=== PATIENT | male | born 1995 | race Caucasian/White ===

== ENCOUNTER 2016-10-15 17:03 | Emergency (ER) | payer OTHER ==
[2016-10-15 17:06] VITALS: BP 127/67
--- NOTE | 2016-10-15 17:59 | UC ---
Throat Pain/Nasal [place] HPI - History of Current Complaint Chief Complaint: UCRespiratory Stated Complaint: SORE THROAT Time Seen by Provider: 10/15/16 17:34 Hx Obtained From: Patient Onset/Duration: Gradual Onset - started [address], worsening, no fever or cough Severity: Worse Since: - today Associated Signs & Symptoms: Positive: Negative - Allergies/Home Medications Allergies/Adverse Reactions: Allergies Allergy/AdvReac Type Severity Reaction Status Date / Time No Known Allergies Allergy Verified 10/15/16 17:05 PMH/Surg Hx/FS Hx/Imm Hx Previously Healthy: Yes - Surgical History Surgical History: None - Family History Known Family History: Positive: None - Social History Occupation: Student Lives: With Family Alcohol Use: Occasionally Substance Use Type: None Smoking Status (MU): Never Smoked Tobacco Review of Systems Constitutional: Negative Skin: Negative ENT: Sore Throat Respiratory: Negative Cardiovascular: Negative Gastrointestinal: Negative Neurological: Negative Psychological: Negative All Other Systems Reviewed And Are Negative: Yes Physical Exam Triage Information Reviewed: Yes Appearance: Well-Appearing, No Pain Distress, Well-Nourished Vital Signs: Initial Vital Signs Temp 98.3 F 10/15/16 17:04 Pulse 76 10/15/16 17:04 Resp 12 10/15/16 17:04 BP 127/67 10/15/16 17:04 Pulse Ox 99 10/15/16 17:04 Vital Signs Reviewed: Yes Eyes: Positive: Conjunctiva Clear ENT: Positive: Pharyngeal erythema, TMs normal, Tonsillar swelling. Negative: Nasal congestion, Nasal drainage, Tonsillar exudate Neck: Positive: Enlarged Nodes @ - bilateral ant cervical LAD Respiratory Exam: Normal Cardiovascular Exam: Normal Neurological Exam: Normal Psychological Exam: Normal Skin Exam: Normal Skin: Negative: rashes Throat Pain/Nasal Course/Dx - Differential Dx/Diagnosis Differential Diagnosis/HQI/PQRI: Mononucleosis, Sinusitis, Tonsillitis, URI Provider Diagnoses: strep throat Discharge - Discharge Plan Condition: Good Disposition: HOME Prescriptions: Azithromycin TAB* [Zithromax TAB (Z-CONNIE) 250 mg #6 tabs] 250 mg PO DAILY #4 tab Patient Education Materials: Strep Throat (ED) Additional Instructions: drink plenty of fluids ibuprofen 600mg every 6 hours as needed for pain take zithromax as directed and follow up at [facility] if not improving in 3 days
[2016-10-15] MEDS ORDERED: Azithromycin TAB* 250 MG PO ONE (18:35)
== END 2016-10-15 18:46 | disposition home or self-care (01) ==
LOC: UCEAST 17:03
DX: J02.0 Streptococcal pharyngitis (principal)
CPT/HCPCS: 87651; 99202; A9270-GY; G0463

== ENCOUNTER 2016-11-19 11:01 | Emergency (ER) | payer OTHER ==
[2016-11-19 11:52] VITALS: BP 109/60
[2016-11-19] MEDS ORDERED: Lidocaine 1% MPF* 2 ML VIAL INJ ONE ×2 (11:59)
--- NOTE | 2016-11-19 12:30 | UC ---
Skin Complaint HPI - HPI Summary HPI Summary: Patient presents with 2-3 day onset progressively worsening abscess formation of the left axilla. He states the abscess is red, raised, warm and painful. He denies trauma, injury, shaving, fever of chills. He denies any arm pain. Reports pain surrounding the red area only,which is constant, and worse with palpation. - History of Current Complaint Chief Complaint: UCSkin Time Seen by Provider: 11/19/16 11:55 Stated Complaint: SKIN COMPLAINT Hx Obtained From: Patient Onset/Duration: Gradual Onset Skin Exposure Onset/Duration: Days Ago Timing: Constant Onset Severity: Mild Current Severity: Moderate Location: Discrete, Other - left axilla Character: Pain, Raised, Painful Aggravating: Touch Alleviating: Nothing Associated Signs & Symptoms: Positive: Tenderness - Allergy/Home Medications Allergies/Adverse Reactions: Allergies Allergy/AdvReac Type Severity Reaction Status Date / Time No Known Allergies Allergy Verified 10/15/16 17:05 Review of Systems Constitutional: Negative Skin: Other - abscess in left axilla. All Other Systems Reviewed And Are Negative: Yes PMH/Surg Hx/FS Hx/Imm Hx Previously Healthy: Yes - Surgical History Surgical History: None - Family History Known Family History: Positive: None - Social History Occupation: Student Lives: Alone Alcohol Use: Occasionally Substance Use Type: None Smoking Status (MU): Never Smoked Tobacco Physical Exam Triage Information Reviewed: Yes Appearance: Well-Appearing Vital Signs: Initial Vital Signs Temp 98.0 F 11/19/16 11:49 Pulse 65 11/19/16 11:49 Resp 18 11/19/16 11:49 BP 109/60 11/19/16 11:49 Pulse Ox 99 11/19/16 11:49 Vital Signs Reviewed: Yes Eye Exam: Normal ENT Exam: Normal Dental: Positive: Abscess @ Neck exam: Normal Cardiovascular Exam: Normal Skin: Positive: Other - left axilla red, raised area approximatly 3.5 cm in diameter. flucuant at center. no surrounding lymphadenopthy. Course/Dx - Course Course Of Treatment: Patient present with an abscess in the left axilla. Once consent was obtained and time out performed, the area cleaned with providine, and was anestiazied using lidocaine 1% 2 mls, using an 11 blade a 2.0 cm incision was made, with 3-4 mls of prurelent discharge. A culture was obtained and sent and is pending. Patient was treated with Bactrim DS 1 tablet twice daily for 10 days. If patient needs or feels he needs re-evaluation he was invited back at any time for re-evaluation. - Differential Diagnoses - Skin Complaint Differential Diagnoses: Abscess - Diagnoses Provider Diagnoses: abscess. incised and drained. Discharge - Discharge Plan Condition: Stable Disposition: HOME Prescriptions: Sulfamethox/Trimethoprim DS* [Bactrim DS 800/160 TAB*] 1 tab PO BID #20 tab Patient Education Materials: Abscess (ED) Referrals: No Primary Care Phys,NOPCP [Primary Care Provider] -
== END 2016-11-19 12:29 | disposition home or self-care (01) ==
LOC: UCEAST 11:01
DX: L02.412 Cutaneous abscess of left axilla (principal); B95.62 Methicillin resistant Staphylococcus aureus infection as the cause of diseases classified elsewhere
CPT/HCPCS: 10060; 87070; 87077; 87186; 87205; 87640; 87641; 99212; G0463